=== PATIENT | male | born 1985 | race Two or more races ===

== ENCOUNTER 2025-01-29 14:25 | Emergency (ER) | payer MEDICAID, SELFPAY ==
--- NOTE | 2025-01-29 14:57 | PC.NURSE ---
called for pt from lobby/outside, no [email or web address] [id number]
[2025-01-29 15:19] VITALS: BP 144/88; PULSE 83; RESP 16; TEMP 37.2; O2SAT 98; BMI 28.3
--- NOTE | 2025-01-29 15:29 | EDNOTE_ITS ---
ED Headache RME/HPI General Chief Complaint: General Adult/Misc Complain Stated Complaint: BODY ACHES/PAINS Time Seen by Provider: 01/29/25 14:53 Arrival date/time: 01/29/25 14:25 This is a 39-year-old male that comes in with complaints of bodyaches, headache sore throat, congestion that is been going on for about a week. Patient denies any past medical history. Patient states that he did have a fever but he does not think he has a fever today. Patient denies any past medical history Related Data Allergies Allergy/AdvReac Type Severity Reaction Status Date / Time No Known Allergies Allergy Verified 01/29/25 14:27 Course Orders Category Date Time Status Bedside COVID-19 Antigen Test NOW Care 01/29/25 15:28 Active Bedside Influenza A&B Antigen Test NOW Care 01/29/25 15:28 Completed Acetaminophen Tab [Tylenol ES Tab] Med 01/29/25 15:28 Discontinued 1,000 mg PO X1 ONE Ibuprofen Tab [Motrin Tab] Med 01/29/25 15:28 Discontinued 800 mg PO X1 ONE Vital Signs Vital signs: Vital Signs Temperature 98.9 F 01/29/25 15:19 Pulse Rate 83 01/29/25 15:19 Respiratory Rate 16 01/29/25 15:19 Blood Pressure 144/88 H 01/29/25 15:19 Pulse Oximetry (%) 98 01/29/25 15:19 Oxygen Delivery Method Room Air 01/29/25 15:19 Headache MDM Narrative MDM Narrative:: COVID and flu negative. Patient given Tylenol ibuprofen for pain. Patient feels better. Patient told to follow-up with his primary provider in 1 to 2 days. Come back to emergency room symptoms change or worsen. It is likely that patient has a upper respiratory infection no need for antibiotics at this time. Medications / Prescriptions Medication administrations:: Medication Administration History Discontinued Medications Acetaminophen (Acetaminophen 500 Mg Tablet) 1,000 mg PO X1 ONE Stop: 01/29/25 15:29 Last Admin: 01/29/25 15:37 Dose: 1,000 mg Documented By: [place]INGTON Ibuprofen (Ibuprofen Tab 400 Mg Tablet) 800 mg PO X1 ONE Stop: 01/29/25 15:29 Last Admin: 01/29/25 15:37 Dose: 800 mg Documented By: WE[place]INGTON Discharge Plan Plan Patient Disposition: HOME (Self Care) Patient condition on transfer: Stable Problem List Clinical Impression: Upper respiratory infection, viral Patient/Caregiver Discharge Instructions Discharge Activity: activity as tolerated Education Materials: ED URI, Viral, No Abx (Adult) Additional Instructions: Bebeto un trena con negrete medico de cabecera en las proximas 24-48 horas. Regrese a la perry de emergencias si hay evidencia de que los signos o sintomas empeoran. Print Language: Ghanaian Stand Alone Forms: Clarissa Award Info., Patient Portal Info Letter PA/PENSIONS RETIREMENT PLAN SPECIALIST Supervising Physician PA/PENSIONS RETIREMENT PLAN SPECIALIST Supervising Physician: [email or web address]
[2025-01-29] MEDS: IBUPROFEN TAB 400 MG TABLET 800 MG PO (15:37)
[2025-01-29] MEDS: ACETAMINOPHEN 500 MG TABLET 1000 MG PO (15:37)
== END 2025-01-29 18:48 | disposition home or self-care (01) ==
LOC: SERX 16:37
PROVIDERS: Emergency Provider Emergency Medicine
DX: J06.9 Acute upper respiratory infection, unspecified (principal)
CPT/HCPCS: 87400; 87811; 99283; A9270